=== PATIENT | male | born 1995 | race Caucasian/White ===

== ENCOUNTER 2023-01-14 13:36 | Emergency (ER) | payer MEDICAID ==
[~2023-01-14] VITALS: Ht 188 cm; Wt 131.5 kg
[2023-01-14 13:41] VITALS: BP 122/60
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
[2023-01-14] MEDS ORDERED: IBUPROFEN 600 MG TABLET PO ONE (14:00)
[2023-01-14] MEDS ORDERED: ACETAMINOPHEN ES 500 MG TABLET PO ONE (14:00)
[2023-01-14] MEDS ORDERED: ACETAMINOPHEN ES 500 MG TABLET ONE (14:45)
[2023-01-14] MEDS ORDERED: IBUPROFEN 600 MG TABLET ONE (14:45)
[2023-01-14] MEDS ORDERED: IBUP-1953 PO (14:52)
--- NOTE | 2023-01-14 15:00 | NUR ---
Patient discharged to home in stable condition. Written and verbal after care instructions given. Patient verbalizes understanding of instruction.
== END 2023-01-14 15:01 | disposition home or self-care (01) ==
LOC: ER 13:48
DX: S06.0XAA Concussion with loss of consciousness status unknown, initial encounter (principal); Z60.2 Problems related to living alone; Y04.0XXA Assault by unarmed brawl or fight, initial encounter; Y93.89 Activity, other specified; Y92.89 Other specified places as the place of occurrence of the external cause; Y99.8 Other external cause status
CPT/HCPCS: 70450-TC